=== PATIENT | male | born 1955 ===

== ENCOUNTER 2021-01-06 07:31 | Day surgery (SDC) | payer OTHER ==
[~2021-01-06 07:31] MED LIST: ADULT LOW DOSE81 M1 PO; LECITHIN1200 MG PO; ONE-A-DAY ESSE1 EACH PO; PANTOPRAZOLE SO40 MG PO; TOPROL XL100 M1 PO
== END 2021-01-06 18:15 | disposition home or self-care (01) ==
LOC: CIR.AMB 07:31
PROVIDERS: ATTEND Otolaryngology Otology & Neurotology
DX: H90.3 Sensorineural hearing loss, bilateral (principal); Z20.822 Contact with and (suspected) exposure to COVID-19
CPT/HCPCS: 69930; L8614